=== PATIENT | female | born 1960 | race African-American/Black ===

== ENCOUNTER 2020-10-15 08:14 | Day surgery (SDC) | payer OTHER, SELFPAY ==
[~2020-10-15] VITALS: Ht 162.6 cm; Wt 62.6 kg
[2020-10-15] MEDS ORDERED: fentaNYL citrate 0.05 MG/ML VIAL ONE (11:35)
[2020-10-15] MEDS ORDERED: LIDOCAINE 2% 100 MG/5 ML UJET TP ONE ×2 (11:36→13:05)
[2020-10-15] MEDS ORDERED: fentaNYL citrate 0.05 MG/ML VIAL IVP ONE (13:05)
== END 2020-10-15 12:54 | disposition home or self-care (01) ==
LOC: MMU 08:14 → MDS 08:14
PROVIDERS: ATTEND Internal Medicine Gastroenterology
DX: Z12.11 Encounter for screening for malignant neoplasm of colon (principal); Z88.6 Allergy status to analgesic agent; Z88.8 Allergy status to other drugs, medicaments and biological substances; Z79.899 Other long term (current) drug therapy; Z20.828 Contact with and (suspected) exposure to other viral communicable diseases
CPT/HCPCS: 45378; J3010; U0003